=== PATIENT | female | born 1995 | race Two or more races ===

== ENCOUNTER 2022-01-25 09:45 | Inpatient (IN) | payer OTHER ==
[~2022-01-25] VITALS: Ht 154.9 cm; Wt 85.3 kg
[2022-01-29] MEDS ORDERED: PRENATAL TABLE1 EAC3 PO (11:04)
== END 2022-02-01 14:40 | disposition home or self-care (01) | DRG 785 ==
LOC: LDR 01-29 07:00 → O/R 01-29 20:16 → OB/GYN 01-29 20:16
PROVIDERS: ADMIT Obstetrics & Gynecology; ATTEND Obstetrics & Gynecology
PROC: 0UB70ZZ Excision of Bilateral Fallopian Tubes, Open Approach (ICD-10-PCS; 2022-01-29)
PROC: 4A1HXCZ Monitoring of Products of Conception, Cardiac Rate, External Approach (ICD-10-PCS; 2022-01-29)
PROC: 10D00Z1 Extraction of Products of Conception, Low, Open Approach (ICD-10-PCS; principal; 2022-01-29 19:00)
DX: O34.211 Maternal care for low transverse scar from previous cesarean delivery (principal); Z30.2 Encounter for sterilization; Z20.822 Contact with and (suspected) exposure to COVID-19; Z37.0 Single live birth; Z3A.38 38 weeks gestation of pregnancy